=== PATIENT | male | born 1990 | race Caucasian/White ===

== ENCOUNTER 2020-01-07 08:27 | Emergency (ER) | payer MEDICAID, OTHER ==
[~2020-01-07] VITALS: Ht 165.1 cm; Wt 61.0 kg
[2020-01-07 08:48] VITALS: BP 115/72
== END 2020-01-07 09:26 | disposition home or self-care (01) ==
LOC: ER 08:42
DX: Z48.00 Encounter for change or removal of nonsurgical wound dressing (principal); Z98.890 Other specified postprocedural states
CPT/HCPCS: 99281

== ENCOUNTER 2020-03-10 12:22 | Emergency (ER) | payer MEDICAID ==
[~2020-03-10] VITALS: Ht 167.6 cm; Wt 56.0 kg
[2020-03-10] MEDS ORDERED: LIDOCAINE HCL/PF 1% 10 MG/ML 30ML VIAL INFIL ONE (13:30)
[2020-03-10] MEDS ORDERED: LIDOCAINE HCL/PF 1% 10 MG/ML 5ML VIAL IJ NR ×2 (13:45→14:00)
[2020-03-10] MEDS ORDERED: LIDOCAINE HCL 1% 20ML VIAL (Pyxis) INJ INFIL ONE (14:00)
[2020-03-10] MEDS ORDERED: IBUPROFEN 600MG TABLET PO ONE (15:15)
[2020-03-10 15:41] VITALS: BP 151/82
== END 2020-03-10 16:27 | disposition home or self-care (01) ==
LOC: ER 12:22
DX: S61.215A Laceration without foreign body of left ring finger without damage to nail, initial encounter (principal); W27.8XXA Contact with other nonpowered hand tool, initial encounter; Y93.89 Activity, other specified; Y92.9 Unspecified place or not applicable; X58.XXXA Exposure to other specified factors, initial encounter; Y92.89 Other specified places as the place of occurrence of the external cause; Y99.8 Other external cause status
CPT/HCPCS: 12001; 73130; 99284; J3490; 99283

== ENCOUNTER 2020-03-14 08:01 | Emergency (ER) | payer MEDICAID ==
[~2020-03-14] VITALS: Ht 165.1 cm; Wt 80.0 kg
[2020-03-14 08:05] VITALS: BP 124/94
== END 2020-03-14 08:42 | disposition home or self-care (01) ==
LOC: ER 08:01
DX: S61.412D Laceration without foreign body of left hand, subsequent encounter (principal); X58.XXXD Exposure to other specified factors, subsequent encounter
CPT/HCPCS: 99281